=== PATIENT | female | born 1960 | race Caucasian/White ===

== ENCOUNTER → 2022-03-30 07:20 | Outpatient (CLI) | payer BC, SELFPAY ==
--- NOTE | 2022-03-30 | DI.MG.S_ITS ---
BILATERAL DIGITAL SCREENING MAMMOGRAM 3D/2D WITH CAD: 03/30/2022 CLINICAL: Routine screening. Comparison is made to exams dated: 10/11/2015 mammogram, 09/03/2012 mammogram - [facility], and 03/25/2009 mammogram - [facility]. There are scattered fibroglandular elements in both breasts. Current study was also evaluated with a Computer Aided Detection (CAD) system. No significant masses, calcifications, or other findings are seen in either breast. There has been no significant interval change. IMPRESSION: NEGATIVE There is no mammographic evidence of malignancy. A 1 year screening mammogram is recommended. This exam was interpreted at Station ID: [id number]. NOTE: For mammograms, a report in lay terms will be sent to the patient. Approximately 15% of breast malignancies will not be visualized mammographically. In the management of a palpable breast mass, a negative mammogram must not discourage biopsy of a clinically suspicious lesion. Electronically Signed By: Jamie maynard/isael:03/30/2022 10:09:25 letter sent: Normal Exam ACR BI-RADS Category 1: Negative 3341F
== END ==
PROVIDERS: PCP Physician Assistant; Referring Provider Physician Assistant; Visit Provider Physician Assistant
DX: Z12.31 Encounter for screening mammogram for malignant neoplasm of breast (principal)
CPT/HCPCS: 77063; 77067

== ENCOUNTER → 2022-05-29 08:48 | Outpatient (CLI) | payer BC, SELFPAY ==
[2022-05-29 11:38] LABS: COVID19 -Nasal RAPID Negative (Negative)
== END ==
PROVIDERS: PCP Physician Assistant; Visit Provider Surgery
DX: Z01.812 Encounter for preprocedural laboratory examination (principal); Z20.822 Contact with and (suspected) exposure to COVID-19
CPT/HCPCS: 87635; C9803

== ENCOUNTER 2022-05-30 09:55 | Day surgery (SDC) | payer BC, SELFPAY ==
[2022-05-30] VITALS (7 sets, daily range): BP systolic 98–159; BP diastolic 52–97; PULSE 76–108; RESP 14–20; TEMP 36–36.6; O2SAT 92–98; BMI 29.8
[2022-05-30] MEDS: LACTATED RINGERS 1,000 ML 200 ML IV (10:24)
--- NOTE | 2022-05-30 10:40 | P.HP_ITS ---
History of Present Illness History of Present Illness Date Patient Seen: 05/30/22 Time Patient Seen: 10:40 Chief complaint: SCREENING COLONOSCOPY Narrative: The patient presents for colorectal screening. She has a personal history of colonic polyps. Last colonoscopy 6 years ago. She has a family history of colon cancer involving multiple members of her mother's side..\ On further history denies any recent gastrointestinal symptoms. No nausea, vomiting, abdo kehinde pain, loss of appetite, unexplained weight loss, change in bowel habits, diarrhea, constipation, melena, hematochezia, or bright red blood per rectum. Patient History Medical History Basal cell carcinoma History of melanoma Family & Social History Social History: household members spouse Tobacco & Substance use: Smoking Status Never smoker alcohol intake former Substance Use Type does not use Meds Home Medications and Allergies Home Medications Medication Instructions Recorded Confirmed Type cholecalciferol (vitamin D3) 50 1 tab PO QDAY ##0 05/09/17 05/30/22 History mcg (2,000 unit) tablet (Vitamin D3) sodium,potassium,mag sulfates 17.5 See Rx Instructions PO .COMPLEX 04/06/22 05/30/22 Rx gram-3.13 gram-1.6 gram oral soln #354 mL (Suprep Bowel Prep Kit) Allergies Allergy/AdvReac Type Severity Reaction Status Date / Time No Known Drug Allergies Allergy Verified 05/30/22 10:04 Exam Vital Signs (past 8 hours): - 05/30/22 10:10 Temperature 97.9 F Pulse Rate 108 H Respiratory Rate 20 Blood Pressure 159/97 H Pulse Oximetry 95 Oxygen Delivery Method Room Air Oxygen Delivery Method Room Air Narrative Exam Narrative: General adult woman alert oriented no acute distress Chest nonlabored respiration Abdomen soft nontender nondistended Assessment & Plan Assessment & Plan narrative: The patient requires colorectal screening and colonoscopy is recommended. Technical details were discussed. Risks, benefits, alternatives explained. Risks including but not limited to myocardial infarction, aspiration, bleeding, pain, missed lesion, incomplete examination, need for further radiographic studies, colonic perforation, and need for major abdominal surgery were discussed. All questions were answered to their satisfaction, and they are in agreement with this plan. Time Spent With Patient Critical Care time: I spent a total of [] minutes of critical care time on this patient's care today; this time is exclusive of procedural time.
--- NOTE | 2022-05-30 10:42 | PM.OP.COLON ---
Operative Date/Time/Diagnoses Date of procedure: 05/30/22 Time of procedure: 10:42 Pre-op diagnosis: Personal history of colonic polyps. Post-op diagnosis: same Procedure & Clinicians Study performed: Colonoscopy Same procedure as scheduled: Yes Indications: Personal history of colonic polyps, Surgeon: Israel Beckman Procedure Notes Procedure in detail: Medications: Conscious sedation using 5mg IV midazolam and 150mcg IV of fentanyl The history and physical was performed/updated and the patient is ASA class is 2. The procedure was discussed in detail with the patient. Potential risks complications including infection, bleeding, missed diagnosis, perforation, need for surgery, and were explained. Their questions were answered and informed consent was obtained. Patient was brought to the procedure room and placed standard monitoring equipment. The patient's vital signs were monitored continuously throughout the entire procedure. Prior to starting time-out was performed. The patient was placed in the left lateral recumbent position. Procedural sedation was administered. Examination began with a thorough inspection of the perianal area there was no evidence of fissures, fistulae, external hemorrhoids or cutaneous malignancy. The colonoscopy scope was then placed into the anal canal and was advanced to the cecum, which was identified by the ileocecal valve, the appendiceal orifice and the confluence of the taenia. The scope was then slowly withdrawn examining colon thoroughly in all directions, irrigating it of any residual stool. FINDINGS 1. No masses or polyps 2. Sigmoid mild diverticulosis 3. Internal hemorrhoids The patient tolerated the procedure well. They will be discharged once criteria are met. The prep was of good/excellent quality. The withdrawl time was 6 minutes. The sedation time was 13 minutes. Complications: none Impression: Normal colonoscopy Post-procedure Recommendations: Colonoscopy in 5 years Follow up: as needed Disposition: same day surgery
[2022-05-30] MEDS: ONDANSETRON 4 MG/2 ML INJ IV (10:54)
[2022-05-30] MEDS: MIDAZOLAM 5 MG/5 ML VIAL IV (11:01)
[2022-05-30] MEDS: fentaNYL 250 MCG/5 ML INJ 150 MCG IV (11:02)
--- NOTE | 2022-05-30 11:43 | SUR.PHASEII ---
05/30/[id number] instructions completed by Clare GAO in pacu. patients iv out and dressed. met criteria for discharge.Stated feels ready to discharge. gait steady. no complaints of pain. Ride at ER. wearing glasses and has all belongings per patient . discharged with paperwork,belongings and paperwork to rides car/care,escorted by volunteer in wheelchair.
== END 2022-05-30 11:43 | disposition home or self-care (01) ==
PROVIDERS: PCP Physician Assistant; Referring Provider Surgery; Visit Provider Surgery
PROC: 0DJD8ZZ Inspection of Lower Intestinal Tract, Via Natural or Artificial Opening Endoscopic (ICD-10-PCS; CPT 45378; principal; 2022-05-30 11:00)
DX: Z12.11 Encounter for screening for malignant neoplasm of colon (principal); Z86.010 Personal history of colon polyps; K57.30 Diverticulosis of large intestine without perforation or abscess without bleeding; K64.8 Other hemorrhoids
CPT/HCPCS: 45378; 99152; J2250; J2405; J3010

== ENCOUNTER → 2024-04-03 07:45 | Outpatient (CLI) | payer BC, SELFPAY ==
--- NOTE | 2024-04-03 07:46 | DI.MG.S_ITS ---
BILATERAL DIGITAL SCREENING MAMMOGRAM 3D/2D WITH CAD: 04/03/2024 CLINICAL: Routine screening. Comparison is made to exams dated: 03/30/2022 mammogram, 10/11/2015 mammogram, and 09/03/2012 mammogram - [facility]. There are scattered areas of fibroglandular density in both breasts (category b / 25%-50% glandular tissue). Current study was also evaluated with a Computer Aided Detection (CAD) system. No significant masses, calcifications, or other findings are seen in either breast. There has been no significant interval change. IMPRESSION: NEGATIVE There is no mammographic evidence of malignancy. A 1 year screening mammogram is recommended. Based on the Tyrer Cuzick model (a risk assessment model) the patient's lifetime risk is 6.5% and her 10 year risk is 2.8%. According to the ACR, ACS, and NCCN guidelines, an annual breast MRI exam along with mammogram is recommended if the patient's lifetime risk is 20% or greater. This exam was interpreted at Station ID: [id number]. NOTE: For mammograms, a report in lay terms will be sent to the patient. Approximately 15% of breast malignancies will not be visualized mammographically. In the management of a palpable breast mass, a negative mammogram must not discourage biopsy of a clinically suspicious lesion. Electronically Signed By: Akila conrad/isael:04/03/2024 10:12:44 letter sent: Normal Exam ACR BI-RADS Category 1: Negative 3341F
== END ==
LOC: MAMMO 07:46
PROVIDERS: PCP Physician Assistant; Referring Provider Physician Assistant; Visit Provider Physician Assistant
DX: Z12.31 Encounter for screening mammogram for malignant neoplasm of breast (principal); R92.323 Mammographic fibroglandular density, bilateral breasts
CPT/HCPCS: 77063; 77067

== ENCOUNTER → 2025-03-16 15:42 | Outpatient (CLI) | payer OTHER, BC, SELFPAY ==
--- NOTE | 2025-03-16 15:45 | DI.CT.S_ITS ---
PROCEDURE: CT ABDOMEN PELVIS W CON INDICATIONS: DIVERTICULITIS TECHNIQUE: After the administration of intravenous contrast, axial sections acquired from the lung bases to the pubic symphysis. Coronal and sagittal reformats were performed. For radiation dose reduction, the following was used: automated exposure control, adjustment of mA and/or kV according to patient size. COMPARISON: None. FINDINGS: Image quality: Diagnostic. Lower Chest: No significant findings. ABDOMEN: Liver: No solid mass. Gallbladder: There is no significant biliary dilatation post cholecystectomy. Biliary ducts: No biliary dilation. Pancreas: No ductal dilation. Spleen: Size is within normal limits. Adrenal Glands: No adrenal nodules. Kidneys and Ureters: No hydronephrosis. No solid mass. No complex renal cystic lesion which requires follow up. Stomach and Bowel: There is no bowel dilatation. Diverticulosis seen especially in the left colon. There are moderate inflammatory changes about a diverticulum in the mid sigmoid. Some adjacent left pelvic free-fluid, without peripheral enhancement, likely reactive. No free intraperitoneal air is seen. Mildly enlarged nodes along the ANGELA chain. Peritoneum: No abnormal intraperitoneal fluid. No free air. Ventral Wall: No significant ventral hernia. Abdominal Nodes: No retroperitoneal or mesenteric adenopathy by size criteria. Vessels: Aorta and inferior vena cava are normal in size. PELVIS: Pelvic Organs: Unremarkable. Bladder: No bladder wall thickening, accounting for underdistention. Pelvic Nodes: No enlarged lymph nodes. Miscellaneous: No inguinal hernias are seen. Bones: No aggressive osseous abnormality. IMPRESSION: 1. Findings most suggestive of acute sigmoid diverticulitis. There is probably some reactive left pelvic free fluid, no convincing signs of abscess or perforation at this time. 2. Given the associated wall thickening and mild adenopathy about the ANGELA chain, follow-up examination may be obtained in several weeks to confirm resolution and exclude neoplasm. Dictated by: Jb Smyth M.D. on 03/16/2025 at 19:03 Approved by: Jb Smyth M.D. on 03/16/2025 at 19:09
[2025-03-16 16:18] LABS: Estimated Glomerular Filt Rate > 60 mL/min (>60)
[2025-03-16 17:00] LABS: Add Manual Diff / Slide Review NO; Basophils Absolute Auto 0 /uL (0-100); Basophils Percent Auto 0.3 % (0-2); Eosinophils Absolute Auto 0 /uL (0-450); Eosinophils Percent Auto 0.4 % (2-4); Hematocrit 40.8 % (36-46); Hemoglobin 13.8 g/dL (12.0-16.0); Lymphocytes Absolute Auto 2500 /uL (1100-4500); Lymphocytes Percent Auto 24.1 % (25-40); Mean Corpuscular HGB Conc 33.9 % (30-36); Mean Corpuscular Hemoglobin 30.3 PG (26-34); Mean Corpuscular Volume 89.5 fL (80-100); Monocytes Absolute Auto 600 /uL (0-900); Monocytes Percent Auto 5.7 % (3-14); Neutrophils Absolute Auto 7200 /uL (1500-7000); Neutrophils Percent Auto 69.5 % (50-75); Platelet Count 386 X10^3/uL (150-400); Red Blood Cell Count 4.56 X10^6/uL (4.0-5.2); Red Cell Distribution Width 13.4 % (11.6-14.8); White Blood Cell Count 10.3 X10^3/uL (4.5-11.0)
[2025-03-16 17:23] LABS: Alanine Aminotransferase 20 IU/L (<35); Albumin 4.6 g/dL (3.5-5.0); Albumin Globulin Ratio 1.3 (1.0-2.8); Alkaline Phosphatase 82 U/L (38-126); Aspartate Aminotransferase 26 IU/L (14-36); BUN Creatinine Ratio 12.9 (6-22); Bilirubin Total 0.5 mg/dL (0.2-1.3); Blood Urea Nitrogen 9 mg/dL (7-17); Calcium 9.9 mg/dL (8.4-10.2); Carbon Dioxide 30 mmol/L (22-32); Chloride 97 mmol/L (98-107); Estimated Glomerular Filt Rate > 60 mL/min (>60); Globulin 3.6 g/dL (1.7-4.1); Glucose 118 mg/dL (70-99); HEMOLYSIS < 15 (0-50); Potassium 4.2 mmol/L (3.4-5.1); Sodium 138 mmol/L (137-145); Total Protein 8.2 g/dL (6.3-8.2)
== END ==
PROVIDERS: PCP Physician Assistant; Referring Provider Physician Assistant; Visit Provider Physician Assistant
DX: K57.92 Diverticulitis of intestine, part unspecified, without perforation or abscess without bleeding (principal); R59.0 Localized enlarged lymph nodes; Z90.49 Acquired absence of other specified parts of digestive tract
CPT/HCPCS: 36415; 74177; 80053; 82565; 85025; Q9967

== ENCOUNTER → 2025-04-17 07:45 | Outpatient (CLI) | payer BC, SELFPAY ==
--- NOTE | 2025-04-17 07:48 | DI.CT.S_ITS ---
PROCEDURE: CT ABDOMEN PELVIS W CON INDICATIONS: 4 week f/u lymphadenopathy TECHNIQUE: After the administration of intravenous contrast, axial sections acquired from the lung bases to the pubic symphysis. Coronal and sagittal reformats were performed. For radiation dose reduction, the following was used: automated exposure control, adjustment of mA and/or kV according to patient size. COMPARISON: [facility], CT, CT ABDOMEN PELVIS W CON, 03/16/2025, 17:23. FINDINGS: Image quality: Diagnostic. Lower Chest: No significant findings. ABDOMEN: Liver: No solid mass. Gallbladder: Previously resected. Biliary ducts: No biliary dilation. Pancreas: No ductal dilation. Spleen: Size is within normal limits. Adrenal Glands: No adrenal nodules. Kidneys and Ureters: No hydronephrosis. No solid mass. No complex renal cystic lesion which requires follow up. Stomach and Bowel: Normal colonic caliber, without significant wall thickening. Peritoneum: No abnormal intraperitoneal fluid. No free air. Ventral Wall: No significant ventral hernia. Abdominal Nodes: No retroperitoneal or mesenteric adenopathy by size criteria. Vessels: Aorta and inferior vena cava are normal in size. PELVIS: Pelvic Organs: Unremarkable. Bladder: No bladder wall thickening, accounting for underdistention. Pelvic Nodes: No enlarged lymph nodes. Miscellaneous: No inguinal hernias are seen. Almost complete resolution of sigmoid diverticulitis with minimal mural thickening remaining at the posterior half of the sigmoid. Reactive mild lymph node prominence adjacent to the inferior mesenteric artery has almost completely resolved also. Bones: No aggressive osseous abnormality. IMPRESSION: No abscess found, almost complete resolution of acute diverticulitis present 03/16/25. Virtually complete resolution of reactive adenopathy adjacent to the inferior mesenteric artery. No neoplasm suspected. Dictated by: Cachorro Castro M.D. on 04/17/2025 at 15:40 Approved by: Cachorro Castro M.D. on 04/17/2025 at 15:43
[2025-04-17 08:21] LABS: Estimated Glomerular Filt Rate > 60 mL/min (>60)
== END ==
LOC: CT 07:47
PROVIDERS: PCP Physician Assistant
DX: K57.92 Diverticulitis of intestine, part unspecified, without perforation or abscess without bleeding (principal); R59.1 Generalized enlarged lymph nodes
CPT/HCPCS: 36415; 74177; 82565; Q9967

== ENCOUNTER → 2025-08-20 07:02 | Outpatient (CLI) | payer BC, SELFPAY ==
--- NOTE | 2025-08-20 07:03 | DI.MRI.S_ITS ---
PROCEDURE: MR KNEE RT WO CON INDICATIONS: ACL laxity, meniscal pain TECHNIQUE: Noncontrast sagittal PD fast spin echo and T2 fast spin echo with fat saturation, sagittal 3-D FLASH with fat saturation; coronal T1 spin echo and PD fast spin echo with fat saturation, and axial PD fast spin echo with fat saturation through the knee. COMPARISON: None. FINDINGS: Image quality: Excellent. Menisci: Mild nonspecific increased T2 weighted signal in the posterior horn of the medial meniscus extending into the posterior meniscal root may represent internal globular degenerative signal changes however subtle horizontal tear could have a similar appearance. Otherwise the anterior horn of the medial meniscus and midbody as well as the lateral meniscus within normal limits. Cruciate ligaments: [id number] increased T2 weighted signal and thinning of the mid and distal anterior cruciate ligament suggests injury/strain but with intact fibers without complete tear or retraction. Posterior cruciate ligament is normal. Medial structures: Mild nonspecific increased medial bursal fluid. The medial collateral ligament appears intact. The semimembranosus tendon insertions appear intact. Visualized portions of the pes anserinus tendons appear normal. Lateral structures: The lateral collateral ligament, long and short heads of the biceps femoris tendon appear intact. The popliteus tendon appears normal. Iliotibial band appears normal. Anterior structures: Nikj-ia-iqeogain nonspecific soft tissue edema in the suprapatellar, infrapatellar fat medially as well as at the proximal attachment of the medial patellofemoral ligament, patellar retinaculum. Quadriceps tendon and patellar ligament normal. Patellar alignment is normal. No femoral trochlear dysplasia. Bones and cartilage: Moderate degenerative changes with moderate diffuse cartilage thinning in the medial and patellofemoral compartments greater than lateral compartment with osteophytes. No focal cartilage defect. Joint space: Mild knee joint effusion. Mild popliteal cyst measures up to approximately 3.5 cm cc by 2 cm transverse by 1 cm AP maximal dimensions. IMPRESSION: Mild injury/strain anterior cruciate ligament. Signal changes posterior horn and posterior meniscal root medial meniscus. Mild knee joint effusion. Moderate degenerative changes. Other findings as above. Dictated by: Alexey Lopez M.D. on 08/20/2025 at 11:15 Approved by: Alexey Lopez M.D. on 08/20/2025 at 11:27
== END ==
LOC: MRI 07:03
PROVIDERS: PCP Physician Assistant; Referring Provider Physician Assistant Surgical; Visit Provider Physician Assistant Surgical
DX: S83.511A Sprain of anterior cruciate ligament of right knee, initial encounter (principal); M25.461 Effusion, right knee; M71.21 Synovial cyst of popliteal space [Baker], right knee
CPT/HCPCS: 73721